=== PATIENT | male | born 1960 | race Caucasian/White ===

== ENCOUNTER 2020-03-21 17:34 | Emergency (ER) | payer OTHER ==
[~2020-03-21] VITALS: Ht 165.1 cm; Wt 72.6 kg
--- NOTE | 2020-03-21 18:06 | NUR ---
Dr. Perez at bedside
[2020-03-21 18:28] VITALS: BP 165/86
--- NOTE | 2020-03-21 18:29 | NUR ---
Patient denies any suicidal thoughts or ideations at this time. Patient cleared for discharge per ER MD.
--- NOTE | 2020-03-21 18:53 | Emergency Department Note ---
History of Present Illnes History of Present Illness Chief Complaint: General Medicine Complaints History of Present Illness This is a 59 year old male arrives to the ED stating he can't sleep. 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 Patient denies being depressed. Patient states he is taking Tylenol sleep aid to help sleep at night but is not very effective. Patient denies any suicidal/homicidal ideations contrary to what was mentioned by EMS. Patient states he is frustrated because he cannot sleep at night but does not have any desire plan to harm himself. Historian: Patient Arrival Mode: [place] Additional Treatment RETAIL CASHIER: none Onset (how long ago): week(s) Severity: mild Duration (how long): week(s) Progression: unchanged Chronicity: new Relieving factors: none Exacerbating factors: none Associated symptoms: Reports denies other symptoms Treatments prior to arrival: none Past Medical/Family History Physician Review I have reviewed the patient's past medical and family history. Any updates have been documented here. Past Medical History Recent Fever: No Clinical Suspicion of Infectio: No New/Unexplained Change in Ment: No Past Medical History: Hypertension, GERD Other Medical History: insomnia anxiety/depression anemia Past Surgical History: None Social History Smoking Cessation: Never Smoker Counseling Performed: No Alcohol Use: None Any Illegal Drug Use: No Physically hurt or threatened: No Other Any Pre-Existing Lines (PICC,: No Review of Systems Review of Systems Constitutional: Reports no symptoms EENTM: Reports no symptoms Cardiovascular: Reports no symptoms Respiratory: Reports no symptoms Gastrointestinal: Reports no symptoms Genitourinary: Reports no symptoms Musculoskeletal: Reports no symptoms Integumentary: Reports no symptoms Neurological: Reports no symptoms Psychological: Reports other (insomnia) Endocrine: Reports no symptoms Hematological/Lymphatic: Reports no symptoms Review of other systems: All other systems negative Physical Exam Related Data Allergies: Coded Allergies: No Known Allergies (Unverified , 12/09/12) Triage Vital Signs Vital Signs Date Time Temp Pulse Resp B/P (MAP) Pulse Ox O2 Delivery O2 Flow Rate FiO2 03/21/20 17:51 97.4 75 16 165/86 99 Room Air Vital signs reviewed: Yes Physical Exam CONSTITUTIONAL Constitutional: Present well-developed, Present well-nourished HENT HENT: Present normocephalic, Present atraumatic, Present oropharynx clear/moist, Present nose normal HENT L/R: Present left ext ear normal, Present right ext ear normal EYES Eyes: Reports PERRL, Reports conjunctivae normal NECK Neck: Present ROM normal PULMONARY Pulmonary: Present effort normal, Present breath sounds normal CARDIOVASCULAR Cardiovascular: Present regular rhythm, Present heart sounds normal, Present capillary refill normal, Present normal rate GASTROINTESTINAL Abdominal: Present soft, Present nontender, Present bowel sounds normal GENITOURINARY Genitourinary: Present exam deferred SKIN Skin: Present warm, Present dry MUSCULOSKELETAL Musculoskeletal: Present ROM normal NEUROLOGICAL Neurological: Present alert, Present oriented x 3, Present no gross motor or sensory deficits PSYCHOLOGICAL Psychological: Present mood/affect normal, Present judgement normal Assessment & Plan Medical Decision Making MDM 59-year-old male arrives to the ED stating he needs help sleeping. I personally sat down and spoke to the patient for a lengthy period of time discussing any of his personal concerns, stresses as well as other psychosocial issues that may be affecting his sleep. Patient admits to having some frustrations at work during a meat butcher but states he has learned to deal with those. Patient admits to living with his and has no change in appetite, has found outside a work, has normal appetite as well as sexual desire. Patient adamantly denied any thoughts to hurt himself states he is frustrated that he cannot sleep. Spoke to patient about sleep hygiene, refraining from electronic devices prior to sleeping, using white noise, a warm shower prior to getting into bed, essential oils. Patient expressed understanding but did appear frustrated with not having an immediate solution. I offered my apologies and recommended patient see his primary care doctor for another potential Sleep-Aid. Patient offered a psychiatric evaluation as well the setting of his work stressors but he refused. Patient was given a list of crisis clinics to see as walk-ins. Patient stable for discharge home. Assessment & Plan Final Impression: (1) Insomnia Depart Disposition: HOME, SELF-CARE Last Vital Signs Date Time Temp Pulse Resp B/P (MAP) Pulse Ox O2 Delivery O2 Flow Rate FiO2 03/21/20 17:56 97.4 75 16 165/86 99 Room Air PRISCILLA OHARA DO Mar 21, 2020 18:53
== END 2020-03-21 18:31 | disposition home or self-care (01) ==
LOC: ER 17:57
DX: G47.00 Insomnia, unspecified (principal); I10 Essential (primary) hypertension; K21.9 Gastro-esophageal reflux disease without esophagitis; F41.9 Anxiety disorder, unspecified
CPT/HCPCS: 99283